=== PATIENT | male | born 1955 | race Caucasian/White ===

== ENCOUNTER 2017-04-01 22:26 | Emergency (ER) | payer BC ==
[~2017-04-01] VITALS: Ht 182.9 cm; Wt 81.2 kg
[~2017-04-01 22:26] MED LIST: AMBI10TA PO; ATOR10 PO; FOSI20 PO; STOMACH PILL
[2017-04-01 22:33] VITALS: BP 134/81; PULSE 99; RESP 18; TEMP 98.3; O2SAT 99
[2017-04-01] MEDS ORDERED: traMADol HCL 50 MG TAB PO ONE (23:00)
--- NOTE | 2017-04-01 23:00 | PD ---
HPI Chief Complaint: Injury Time Seen by Provider: 22:42 Travel History International Travel<30 days: No Contact w/Intl Traveler<30days: No Traveled to known affect area: No History of Present Illness HPI Patient is a 61-year-old male who comes in after he says he fell down the stairs today. He says he missed the top step and he tumbled down to the landing. He says that he hit his head and landed on his right shoulder. He is mostly complaining of pain to the right shoulder. He also scraped his knee. He denies any loss of consciousness. He says that he has history of rotator cuff injury to the right shoulder. He was feeling fine prior to the fall. He denies any numbness or tingling. Denies any neck pain. PFSH Past Medical History High Cholesterol: Yes Gastrointestinal Disorders: Yes (INTERMITTENT GASTRITIS) GERD: Yes Hypertension: Yes Pancreatitis: Yes Tetanus Vaccination: < 5 Years Influenza Vaccination: No Past Surgical History Other Surgery: Yes (LEFT FOOT SURGERY ACHILLES TENDON) Social History Alcohol Use: No (quit 2011) Tobacco Use: No Substance Use: No Allergies-Medications (Allergen,Severity, Reaction): Coded Allergies: Penicillin (Verified Allergy, Intermediate, RASH, 04/01/17) Reported Meds & Prescriptions Reported Meds & Active Scripts Active Tramadol (Tramadol HCl) 50 Mg Tab 50 Mg PO Q6H PRN Review of Systems General / Constitutional: No: Fever, Chills Eyes: No: Blurred Vision HENT: No: Headaches, Lightheadedness Cardiovascular: No: Chest Pain or Discomfort Respiratory: No: Shortness of Breath Gastrointestinal: No: Nausea, Vomiting Musculoskeletal: Positive: Pain Skin: No Change in Pigmentation Neurologic: No: Weakness, Dizziness Physical Exam Narrative GENERAL: Awake and alert, in no acute distress. SKIN: Focused skin assessment warm/dry. HEAD: Atraumatic. Normocephalic. EYES: Pupils equal and round. No scleral icterus. Extraocular movements intact. ENT: Mucous membranes pink and moist. NECK: Trachea midline. No JVD. No cervical spine tenderness. CARDIOVASCULAR: Regular rate and rhythm. No murmur appreciated. RESPIRATORY: No accessory muscle use. Clear to auscultation. Breath sounds equal bilaterally. GASTROINTESTINAL: Abdomen soft, non-tender, nondistended. MUSCULOSKELETAL: No obvious deformities. No clubbing. No cyanosis. No edema. Tender palpation of right shoulder. Pain with abduction of the right shoulder. Radial pulse intact. No tenderness to the pelvis, or either knee. He is walking normally. No spinal tenderness. NEUROLOGICAL: Awake and alert. No obvious cranial nerve deficits. Motor grossly within normal limits. Normal speech. PSYCHIATRIC: Appropriate mood and affect; insight and judgment normal. Data Data Last Documented VS Vital Signs Date Time Temp Pulse Resp B/P Pulse Ox O2 Delivery O2 Flow Rate FiO2 04/01/17 22:55 Room Air 04/01/17 22:33 98.3 99 18 134/[address] Brain W/O Iv Contrast(Rout) (04/01/17 ) Shoulder, Complete (>2vws) (04/01/17 ) Tramadol (Ultram) (04/01/17 23:00) MDM Medical Decision Making Medical Screen Exam Complete: Yes Emergency Medical Condition: Yes Medical Record Reviewed: Yes Differential Diagnosis Shoulder sprain versus shoulder dislocation versus fracture versus head injury Narrative Course Patient is a 61-year-old male comes in complaining of shoulder pain after a fall today. Exam shows pain with movement of the right shoulder. CT head performed. X-ray of the shoulder performed. Patient given tramadol. XR shows chronic rotator cuff tear, no acute fracture. CT head performed shows shows no acute abnormalities. Last 24 hours Impressions Shoulder X-Ray 04/01/17 0000 Signed Impressions: Service Date/Time: Saturday, April 01, 2017 23:00 - CONCLUSION: 1. No fracture or acute appearing malalignment of the right shoulder. 2. Moderate osteoarthritis and moderate subacromial spurring. 3. Narrowing of the subacromial space, a finding that can be seen in the setting of a chronic full-thickness rotator cuff tear. Stephan Gotti MD Patient given a sling to wear for comfort. Advised to take it off several times per day and stretch his shoulder to avoid frozen shoulder. Advised to take ibuprofen as needed for pain. Given a prescription for 10 tramadol. Advised to return to the emergency department as needed for any worsening symptoms. Advised to follow-up with a primary care doctor. Diagnosis Primary Impression: Fall Qualified Code: W19.XXXA - Fall, initial encounter Additional Impression: Shoulder sprain Qualified Code: S43.401A - Sprain of right shoulder, unspecified shoulder sprain type, initial encounter Patient Instructions: Fall Prevention (ED), General Instructions, Shoulder Sprain (ED) Additional Instructions: Take Ibuprofen as needed for pain. You can take Tramadol for severe pain. Make sure to stretch your shoulder to prevent frozen shoulder. Follow up with your doctor. Return to the ED as needed for any worsening symptoms. Scripts Tramadol 50 Mg Tab50 Mg PO Q6H PRN (PAIN) #10 TAB Ref 0 Prov:Sho Mahajan MD 04/01/17 Disposition: 01 DISCHARGE HOME Condition: Stable Sho Mahajan MD Apr 01, 2017 23:00
--- NOTE | 2017-04-01 23:18 | RADHPO ---
EXAM DATE/TIME: 04/01/2017 23:00 [facility] COMPARISON: No previous studies available for comparison. INDICATIONS : Right shoulder pain post fall today. MEDICAL HISTORY : Right torn rotator cuff. SURGICAL HISTORY : None. ENCOUNTER: Initial ACUITY: 1 day PAIN SCORE: 10/10 LOCATION: Right shoulder. FINDINGS: No fracture seen of the right shoulder. Moderate osteoarthritis noted of both the acromioclavicular and glenohumeral joints. There is moderat e subacromial spurring. Narrowing noted of the subacromial space. Radiographic appearance of the soft tissues within normal limits. CONCLUSION: 1. No fracture or acute appearing malalignment of the right shoulder. 2. Moderate osteoarthritis and moderate subacromial spurring. 3. Narrowing of the subacromial space, a finding that can be seen in the setting of a chronic full-th ickness rotator cuff tear. Stephan Gotti MD on April 01, 2017 at 23:15 Board Certified Radiologist. This report was verified electronically.
[2017-04-01] MEDS ORDERED: TRAM50TA PO (23:23)
--- NOTE | 2017-04-01 23:29 | RADHPO ---
EXAM DATE/TIME: 04/01/2017 23:07 [facility] COMPARISON: No previous studies available for comparison. INDICATIONS : Trauma. Fall. RADIATION DOSE: 64.69 CTDIvol (mGy) MEDICAL HISTORY : Hypertension. SURGICAL HISTORY : None. ENCOUNTER: Initial ACUITY: 1 day PAIN SCALE: 4/10 LOCATION: Left frontal TECHNIQUE: Multiple contiguous axial images were obtained of the head. Using automated exposure control and adj ustment of the mA and/or kV according to patient size, radiation dose was kept as low as reasonably a chievable to obtain optimal diagnostic quality images. FINDINGS: CEREBRUM: The ventricles are normal for age. No evidence of midline shift, mass lesion, hemorrhage or acute in farction. No extra-axial fluid collections are seen. POSTERIOR FOSSA: The cerebellum and brainstem are intact. The 4th ventricle is midline. The cerebellopontine angle i s unremarkable. EXTRACRANIAL: The visualized portion of the orbits is intact. SKULL: The calvaria is intact. No evidence of skull fracture. CONCLUSION: Negative noncontrast head CT. Stephan Gotti MD on April 01, 2017 at 23:27 Board Certified Radiologist. This report was verified electronically.
[2017-04-01 23:48] VITALS: BP 139/72
[2017-04-01 23:52] VITALS: RESP 18
== END 2017-04-01 23:55 | disposition home or self-care (01) ==
LOC: PHED 22:26
DX: S43.401A Unspecified sprain of right shoulder joint, initial encounter (principal); E78.00 Pure hypercholesterolemia, unspecified; I10 Essential (primary) hypertension; K21.9 Gastro-esophageal reflux disease without esophagitis; W10.8XXA Fall (on) (from) other stairs and steps, initial encounter; Y93.89 Activity, other specified; Y92.9 Unspecified place or not applicable; Y99.8 Other external cause status
CPT/HCPCS: 70450; 73030; 99284